=== PATIENT | female | born 1975 | race Caucasian/White ===

== ENCOUNTER 2023-09-04 12:19 | Emergency (ER) | payer SELFPAY ==
[2023-09-04 12:24] VITALS: BMI 32.3
--- NOTE | 2023-09-04 12:25 | ECG_ITS ---
Test Reason : CHEST PAIN Blood Pressure : / mmHG Vent. Rate : 088 BPM Atrial Rate : 088 BPM P-R Int : 170 ms QRS Dur : 088 ms QT Int : 376 ms P-R-T Axes : 044 055 005 degrees QTc Int : 454 ms Normal sinus rhythm Nonspecific T wave abnormality Abnormal ECG No previous ECGs available Referred By: Generic ED Physician Electronically Signed By:ERNESTO NICOLE MD
[2023-09-04 13:00] VITALS: BP 138/83; PULSE 94; RESP 16; TEMP 36.4; O2SAT 98; BMI 32.3
[2023-09-04 13:31] LABS: MANUAL DIFF FLAG NO
[2023-09-04 13:38] LABS: Basophils Percent Auto 0.6 % (0-2); Eosinophils Absolute Auto 0.1 X10*3/uL (0.0-0.4); Eosinophils Percent Auto 1.9 % (0-4); Hematocrit 39.8 % (37.0-47.0); Hemoglobin 13.5 g/dl (12.0-16.0); Imm Gran Abs Auto 0.01 X10*3/uL (0.00-0.03); Imm Gran Pct Auto 0.2 % (0.0-0.4); Lymphocytes Absolute Auto 2.2 X10*3/uL (1.2-4.9); Mean Corpuscular HGB Conc 33.9 g/dl (31.0-35.0); Mean Corpuscular Hemoglobin 30.3 pg (27.0-33.0); Mean Corpuscular Volume 89.4 fL (80.0-98.0); Mean Platelet Volume 8.9 fL (9.4-12.3); Monocytes Absolute Auto 0.5 X10*3/uL (0.1-1.2); Neutrophils Absolute Auto 3.5 x10*3/uL (2.0-8.3); Neutrophils Percent Auto 54.3 % (45-73); Platelet Count 245 X10*3/uL (160-400); Red Blood Count 4.45 X10*6/uL (4.20-5.50); White Blood Count 6.4 X10*3/uL (4.8-10.8)
[2023-09-04 13:50] LABS: Alanine Aminotransferase 34 U/L (0-31); Albumin Level 4.7 g/dL (3.5-5.0); Alkaline Phosphatase 85 U/L (39-117); Anion Gap 12 (12-20); Aspartate Amino Transferase 27 U/L (5-31); Bilirubin Direct 0.2 mg/dL (0.0-0.5); Bilirubin Total 0.6 mg/dL (0.0-1.0); Blood Urea Nitrogen 14 mg/dL (9-16); Calcium 9.9 mg/dL (8.4-10.2); Carbon Dioxide 28 mmol/L (22-29); Chloride 104 mmol/L (96-108); Creatinine Clr Calc Pharmacy 96.3; Estimated Glomerular Filt Rate > 60; Glucose Random 99 mg/dL (60-115); Potassium 4.3 mmol/L (3.3-5.1); Sodium 140 mmol/L (135-145); Total Protein 7.9 g/dL (6.5-8.0)
[2023-09-04 13:58] LABS: Troponin-I High Sensitivity < 2.7 ng/L (<3.5-17.0)
== END 2023-09-04 17:29 | disposition left against medical advice (07) ==
LOC: HO.ED 16:42
PROVIDERS: Emergency Provider Emergency Medicine
DX: R07.89 Other chest pain (principal); Z79.899 Other long term (current) drug therapy
CPT/HCPCS: 36415; 80048; 80076; 84484; 85025; 93005; 99283

== ENCOUNTER → 2023-09-04 12:25 | Outpatient (BNV) | payer SELFPAY | PROVIDERS: Emergency Provider Emergency Medicine; Visit Provider Internal Medicine Cardiovascular Disease | DX: R94.31 Abnormal electrocardiogram [ECG] [EKG] (principal) | CPT/HCPCS: 93010 ==

== ENCOUNTER 2024-06-03 22:50 | Emergency (ER) | payer MEDICARE, SELFPAY ==
[2024-06-03 23:16] VITALS: BP 140/92; PULSE 121; RESP 24; TEMP 36.8; O2SAT 100; BMI 39.4
[2024-06-03 23:41] LABS: MANUAL DIFF FLAG NO
[2024-06-03 23:43] LABS: Basophils Absolute Auto 0.1 X10*3/uL (0.0-0.2); Basophils Percent Auto 0.5 % (0-2); Eosinophils Absolute Auto 0.1 X10*3/uL (0.0-0.4); Eosinophils Percent Auto 1.2 % (0-4); Hematocrit 37.2 % (37.0-47.0); Hemoglobin 12.8 g/dl (12.0-16.0); Imm Gran Abs Auto 0.06 X10*3/uL (0.00-0.03); Imm Gran Pct Auto 0.5 % (0.0-0.4); Lymphocytes Percent Auto 24.7 % (20-40); Mean Corpuscular HGB Conc 34.4 g/dl (31.0-35.0); Mean Corpuscular Hemoglobin 30.4 pg (27.0-33.0); Mean Corpuscular Volume 88.4 fL (80.0-98.0); Mean Platelet Volume 8.8 fL (9.4-12.3); Monocytes Absolute Auto 0.9 X10*3/uL (0.1-1.2); Neutrophils Percent Auto 66.1 % (45-73); Platelet Count 284 X10*3/uL (160-400); Red Blood Count 4.21 X10*6/uL (4.20-5.50); Red Cell Distribution Width 12.2 % (11.0-16.0); White Blood Count 12.1 X10*3/uL (4.8-10.8)
[2024-06-03 23:45] LABS: Appearance Urine Turbid; Glucose Urine UA Negative (Negative); Leukocyte Esterase Urine Large (3+) (Negative); Nitrite Urine Positive (Negative); Specific Gravity - Urine <= 1.005 (1.005-1.025); UMIC TRIGGER UACC YES; Urine Blood Large (3+) (Negative); Urine Protein 300 (3+) mg/dL (Neg-Trace)
[2024-06-03 23:46] LABS: Color Urine Orange
[2024-06-03 23:53] LABS: Bacteria Urine None Seen (None Seen); Hyaline Casts Urine 0-2 /LPF (0-2); RBC Urine >20 /HPF (0-2); Squamous Epithelial Cell Urine 0-2 /HPF (0-2); UACC Culture Trigger YES; WBC Urine >50 /HPF (0-5)
[2024-06-03 23:59] LABS: Albumin Level 4.5 g/dL (3.5-5.0); Alkaline Phosphatase 100 U/L (39-117); Anion Gap 14 (12-20); Aspartate Amino Transferase 50 U/L (5-31); Bilirubin Total 0.3 mg/dL (0.0-1.0); Blood Urea Nitrogen 13 mg/dL (9-16); Calcium 9.7 mg/dL (8.4-10.2); Carbon Dioxide 25 mmol/L (22-29); Chloride 103 mmol/L (96-108); Creatinine Clr Calc Pharmacy 99.9; Estimated Glomerular Filt Rate > 60; Glucose Random 98 mg/dL (60-115); Potassium 4.1 mmol/L (3.3-5.1); Sodium 138 mmol/L (135-145); Total Protein 7.6 g/dL (6.5-8.0)
[2024-06-04 00:13] LABS: Alanine Aminotransferase 93 U/L (0-31)
--- NOTE | 2024-06-04 01:40 | PC.NURSE ---
pt arrived from the waiting room for uti
[2024-06-04 01:49] VITALS: BP 103/72; PULSE 93; RESP 18; TEMP 36.4; O2SAT 97
--- NOTE | 2024-06-04 01:58 | ED.FEMALEGU ---
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 She notes abrupt onset suprapubic pain, pressure, blood in urine and dysuria. She has no flank pain, fevers, n/v. She is asking for abx and to go home for treatment. MD elicited complaint: dysuria, UTI and other (hematuria) Pertinent past history: recurrent UTIs Onset (ago): hour(s) (few) Location of symptoms: suprapubic Severity: moderate Quality of pain: burning Consistency: intermittent Vaginal discharge: none Vaginal bleeding: none Urinary symptoms: Dysuria, Urgency, Frequency and Hematuria Exacerbating factors: urination Relieving factors: none Associated symptoms: denies other symptoms Treatment prior to arrival: OTC urinary analgesics Related Data Previous Rx's ?Medication ?Instructions ?Recorded cefuroxime axetil 250 mg tablet 250 mg PO BID 7 days #14 tabs 06/04/24 Allergies Allergy/AdvReac Type Severity Reaction Status Date / Time No Known Allergies Allergy Verified 06/03/24 23:16 Review of Systems Review of Systems: Constitutional : No Fever, No Chills ENT/Mouth : No sore throat Eyes: No Eye Pain, No Swelling, No Redness Cardiovascular : No Chest Pain, No SOB Respiratory : No Cough, No Sputum, No Wheezing Gastrointestinal : no Nausea, no Vomiting, No Diarrhea, positive abdominal pain Genitourinary : positive Dysuria, positive urinary frequency, positive Hematuria Musculoskeletal : No joint pain, No Myalgias Skin : No Skin Lesions, No rash Neuro : No Weakness, No Numbness, No Headache All other systems reviewed and are negative PMFSH Past Medical History Attestation statement: The following information was validated with the patient. Source: old records reviewed Medical History Overactive bladder UTI (urinary tract infection) Social History Social History Alcohol intake: never Smoked in Last 30 Days: No Use of substances other than those prescribed or required for medical reasons: No Do you have a plan to hurt others: No Plan Patient : No Physical Exam Vital Signs: Vital Signs: Last Vital Signs Temp 97.5 F 06/04/24 01:49 Pulse 93 06/04/24 01:49 Resp 18 06/04/24 01:49 BP 103/72 06/04/24 01:49 Pulse Ox 97 06/04/24 01:49 O2 Del Method Room Air 06/04/24 01:49 BMI result Body Mass Index 39.4 Appearance: Alert. Oriented X3. No acute distress. Eyes: Pupils equal, round and reactive to light. ENT: Pharynx normal. Neck: Normal inspection. Neck supple. CVS: Normal heart rate and rhythm. Pulses normal. Respiratory: No respiratory distress. Breath sounds normal. Abdomen: Soft and non-tender. no CVA ttp Skin: Skin warm and dry. Normal skin color. Extremities: No lower extremity edema. Neuro: Oriented X 3. No motor deficit. No sensory deficit. Medical Decision Making Medical Decision Making [facility] Narrative: 49 yo female with PMH of overactive bladder, UTI here with c/o dysuria, suprapubic pain and hematuria no vomiting, fevers, HR down without therapy, no flank pain and no hx of stones. At this time labs and UA ordered start on abx for UTI - not toxic, low susp for pyelo and renal colic Differential Diagnosis Differential Diagnoses: The differential diagnosis associated with the presentation includes UTI, cystitis Admission/Observation Consideration of admission/observation: Escalation of care including admission/observation considered labs and VS stable Lab Data [facility] Lab Attestation statement: I reviewed the patient's lab results. 06/03/24 23:33 06/03/24 23:33 Labs: Lab Results 06/03/24 Range/Units 23:33 WBC 12.1 H (4.8-10.8) X10*3/uL RBC 4.21 (4.20-5.50) X10*6/uL Hgb 12.8 (12.0-16.0) g/dl Hct 37.2 (37.0-47.0) % MCV 88.4 (80.0-98.0) fL MCH 30.4 (27.0-33.0) pg MCHC 34.4 (31.0-35.0) g/dl RDW 12.2 (11.0-16.0) % Plt Count 284 (160-400) X10*3/uL MPV 8.8 L (9.4-12.3) fL Immature Gran % (Auto) 0.5 H (0.0-0.4) % Neut % (Auto) 66.1 (45-73) % Lymph % (Auto) 24.7 (20-40) % [place] % (Auto) 7.0 (2-11) % Eos % (Auto) 1.2 (0-4) % Baso % (Auto) 0.5 (0-2) % Lymph # (Auto) 3.0 (1.2-4.9) X10*3/uL [place] # (Auto) 0.9 (0.1-1.2) X10*3/uL Eos # (Auto) 0.1 (0.0-0.4) X10*3/uL Baso # (Auto) 0.1 (0.0-0.2) X10*3/uL Abs Immat Gran (auto) 0.06 H (0.00-0.03) X10*3/uL Absolute Neuts (auto) 8.0 (2.0-8.3) x10*3/uL Absolute Nucleated RBC 0.000 (0.0-0.012) X10*3/uL Nucleated RBC % (auto) 0.0 (0.0-0.2) /100WBC Sodium 138 (135-145) mmol/L Potassium 4.1 (3.3-5.1) mmol/L Chloride 103 (96-108) mmol/L Carbon Dioxide 25 (22-29) mmol/L Anion Gap 14 (12-20) BUN 13 (9-16) mg/dL Creatinine 0.80 (0.5-1.4) mg/dL Estim Creat Clear Calc 99.9 Estimated GFR > 60 Random Glucose 98 (60-115) mg/dL Calcium 9.7 (8.4-10.2) mg/dL Total Bilirubin 0.3 (0.0-1.0) mg/dL AST 50 H (5-31) U/L ALT 93 H (0-31) U/L Alkaline Phosphatase 100 (39-117) U/L Total Protein 7.6 (6.5-8.0) g/dL Albumin 4.5 (3.5-5.0) g/dL Urine Color [place] A Urine Appearance Turbid Urine pH 5.0 (5.0-9.0) Ur Specific [place] <= 1.005 (1.005-1.025) Urine Protein 300 (3+) H (Neg-Trace) mg/dL Urine Glucose (UA) Negative (Negative) mg/dL Urine Ketones (Negative) mg/dL Urine Blood Large (3+) H (Negative) Urine Nitrite Positive H (Negative) Ur Leukocyte Esterase Large (3+) H (Negative) Urine RBC >20 H (0-2) /HPF Urine WBC >50 H (0-5) /HPF Ur Squamous Epith Cells 0-2 (0-2) /HPF Urine Bacteria None Seen (None Seen) Hyaline Casts 0-2 (0-2) /LPF External Record Review External record reviewed: Outpatient record Prescription Management I considered prescription management with: Antibiotic Discharge Plan Discharge Clinical Impression: Urinary tract infection, Cystitis Patient Disposition: Home, Self-Care Instructions: Urinary Tract Infection in Women (ED) Additional Instructions: return for fevers, vomiting, unable to eat or drink, back pain or any worsening symptoms start oral antibiotics tonight at dinner congratulations on your graduation On a cephalosporin?antibiotic, softer bowel movements are to be expected. Call your provider if you move your bowels more than 4 times a day, your bowel movements are almost all liquid, or you get a rash.?? Prescriptions: New cefuroxime axetil 250 mg tablet 250 mg PO BID 7 Days Qty: 14 0RF Print Language: Welsh
[2024-06-04] MEDS: Ketorolac Tromethamine 15 MG/ML VIAL IVPUSH (02:49)
[2024-06-04] MEDS: cefTRIAXone sodium 1 GM VIAL IVPUSH (02:49)
--- OUTSIDE RECORDS SUMMARY | 2024-06-04 03:22 | XMS_ITS | Continuity of Care Document ---
Author Organization [facility] Address [address] [place] [address] Phone Care Team Providers Care Roving Carrier Name Role Phone Fercho Noyola DO Unavailable Unavailable Allergies, Adverse Reactions, Alerts Substance Reaction Status Criticality latex Rash Active No Information Medications Medication Instructions Dosage Effective Dates (start - stop) Status Comments gabapentin 300 mg capsule take 1 capsule by oral route 3 times every day 300 MG - Active Lamictal 100 mg tablet take 1 tablet by oral route every day 100 MG - Active Minivelle 0.075 mg/24 hr transdermal patch apply 1 patch by transdermal route 2 times every week cyclically, 3 weeks on and 1 week off 1.00 patch - Active Adderall XR 25 mg capsule,extended release take 1 capsule by oral route 2 times every day in the morning upon awakening 25 MG - Active Minivelle 0.075 mg/24 hr transdermal patch apply 1 patch by transdermal route 2 times every week cyclically, 3 weeks on and 1 week off 1.00 patch - No Longer Active Bactrim DS 800 mg-160 mg tablet take 1 tablet by oral route every 12 hours for 3 days - No Longer Active Problems Condition Type Effective Dates (start - stop) Clini juan Status Comments No Known Problems Procedures Procedure Date Preven Meds E&m Estab Pt; 016 Cytopath Cerv/vag Thin Prep; R 16 Preven Meds E&m Estab Pt; 016 Offic/outpt E&m Estab Low-mod 5 Offic/outpt E&m Estab Low-mod 5 Offic/outpt E&m Estab Low-mod 5 Offic/outpt E&m Estab Low-mod 5 Ua Dip Stik/tablt;wo Micro Non 15 Offic/outpt E&m Estab Low-mod 5 Offic/outpt E&m Estab Low-mod 4 Offic/outpt E&m Estab Low-mod 4 Echo Transvaginal Init Preven Meds E&m New Pt; 18-39 Advance Directives Directive Yes / No Effective Date File Name No Information Encounters Encounter Description Practice Location Reason(s) For Visit Diagnoses Date Provider Providers Copied on Encounter Preven Meds E&m Estab Pt; 40-64 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 [address] [place] [address], [place], [place], [address] [place] [address] , [place]. tel:[phone] Offic/outpt E&m Estab Low-mod [facility], [address], [place], [place], [id number], tel:[phone] Kristina nnbrandy (old) consult estrogen (chief complaint) Menopausal and female climacteric states 5 Dennys Barrera. [address] [place] [address], [place] [address], [place], [place], [id number] , [place]. tel:[phone] [facility], [address], [place], [place], [id number], [place] tel:[phone] Kristina nna (old) No Information 5 Scott Baer. [address] [place] [address], [facility], . tel:[phone] Offic/outpt E&m Estab Low-mod [facility], [address], [place], [place], [id number], [place] tel:[phone] NEOB-Gaha nna (old) med check (chief complaint) Hormone replacement therapy 5 Dennys Barrera. [facility], [address], [address] [place] [address] , . tel:[phone] [facility], [address], [place], [place], [address] [place] [address], [place] tel:[phone] NEOB-Gaha nna (old) No Information 5 Dennys Barrera. [address] [place] [address], [place] [address], [place], [place], [address] [place] [address] , . tel:[phone] Offic/outpt E&m [facility], [address], [place], [place], [address] [place] [address], tel:[phone] NEOB-Gaha nna (old) talk about test that were done (chief complaint) wants RX for migrains (chief complaint) Family hx of breast cancerEndometrioma of ovary 5 Dennys Barrera. [address] [place] [address], [place] [address], [place], [place], [address] [place] [address] , . tel:[phone] Offic/outpt E&m [facility], [address], [place], [place], [address] [place] [address], [place] tel:[phone] NEOB-Gaha nna (old) F/U from ER (chief complaint) Pelvic pain 4 Dennys Barrera. [facility]5 [facility], [place] [address], [place], [place], [address] [place] [address] , [place]. tel:[phone] [facility]pt [facility], [address], [place], [place], [id number], [place] tel:[phone] NEOB-Gaha nna (old) results to [place] (chief complaint) Endometrioma of ovary 4 Dennys Barrera. [facility], [address] [facility], [place], [place], [id number] , . [phone] [facility], [address], [place], [place], [id number], [phone] NEOB-Gaha nna (old) No Information 4 Dennys DE ANDA Fercho. [facility]5 [facility], [place] [address], [place], [place], [id number] , . [phone] Init Preven Meds E&m New Pt; 18-39 [facility], [address], [place], [place], [id number], [phone] NEOB-Gaha nna (old) annual exam (chief complaint) right breast pain (chief complaint) possible cyst (chief complaint) ROUTINE NAIL PROFESSIONAL EXAMINATIONFamily hx of breast cancerBreast pain 4 Noyola DO Brantley. [address] [place] [address], [place] [address], [place], [place], [id number] , . [phone] Family History Family Member Type Diagnosis Age At Onset Problem (finding) Family history of malignant neoplasm of breast in first degree relative Payers Payer name Insurance type Covered green party ID Authoriza tion(s) No Information Social History Type Description Quantity Date Captured Comments Alcohol Use Details Unknown Caffeine Use Details Unknown Tobacco Use Status Never smoked tobacco 2015 Smoking Status Never smoker Sex Female Vital Signs Date / Time: Height Weight BMI Pulse Rate Blood Pressure Temperature Respiratory Rate Body Surface Area Head Circumference Head Circ. Percentile Wt./John. Percentile BMI percentile Pulse Ox Inhaled Ox 1:17 PM 63.50 in 78.018 kg (172.00 lbs) 29.9 9 kg/m eter (2) 115 /min 140/95 mm[Hg] Chief Complaint And Reason For Visit From encounter dated '09/02/2015 13:00'. annual exam (chief complaint). Description: Currently : no. Patient is not contemplating . The patient states she uses hysterectomy for control. Her menses is absent. Negative for dysmenorrhea and menorrhagia. Negative for: breast discharge, breast lump(s) and breast pain. Positive for: breast self exam.Postmenopausal: Age: 39. Positive for Hormone replacement therapy (Type: estrogen, Number of years: 1). Menopausal symptoms negative for: hot flashes, insomnia and night sweats. Additional information: annual exam. doing well. Has gotten to her partner, moved back to [place]. s/p hysterectomy. BRCA +. waiting to have mastectomy performed. ovaries removed with hyst. no bleeding. using vivelle dot. Reason For Referral Reason For Referral No Information History Of Present Illness Encounter Date Complaint History Of Prese nt Illness annual exam Currently pregna nt: no. Patient is not contemplating . The patient states she uses hysterectomy for control. Her menses is absent. Negative for dysmenorrhea and menorrhagia. Negative for: breast discharge, breast lump(s) and breast pain. Positive for: breast self exam.Postmenopausal: Age: 39. Positive for Hormone replacement therapy (Type: estrogen, Number of years: 1). Menopausal symptoms negative for: hot flashes, insomnia and night sweats. Additional information: annual exam. doing well. Has gotten to her partner, moved back to [place]. s/p hysterectomy. BRCA +. waiting to have mastectomy performed. ovaries removed with hyst. no bleeding. using vivelle dot. consult estrogen Patient present s today to discuss estrogen replacement. Patient has moved to [place] and has not found a new doctor as recommended. Patient has been using the minivelle 0.075 but states that she continues to have hot flashes. Patient is a BRCA carrier and has yet to see a breast surgeon as recommended. Patient also is a smoker and now 40yo. med check Patient returns today after hysterectomy, resulting in surgical menopause with Dr. Ashford. Benign pathology. Patient referred back to me for hormone replacement therapy. Patient was given samples of minivelle dot at 0.05 but continues to have some hot flashes, wants to go up on the dose. Surgically patient is doing very well. talk about test that were done P atient returns today to discuss recent genetic testing. Patient is +for BRCA. Patient is scheduled to meet again with Dr. Vaccarello for ovarian cyst and elevated CA-125 of 500+. Patient without pain today. Patient is anxious and concerned about cancer. wants RX for migrains F/U from ER Patient returns today after recent admission to [facility] after visit to ED for pelvic pain. Patient admits that on Saturday evening pain was intense and required IV pain medication. Patient however left the next day AMA prior to being seen by me. Patient admits that pain has improved. Patient now describes abdomen with a mild tenderness. Denies N/V or fevers. Patient is voiding with regular bowel movements. results to US Patient returns today to discuss recent TVUS. Patient with hx of LSO. Right ovary demonstrates a likely endometrioma measuring 6d2x8mm. Classic ground glass appearance. No free fluid. Patient also has not had mammo performed yet. Patient with strong fam hx of breast cancer in mother, grandmother and cousin. The sister of the cousin is +BRCA. unknown on mother and grandmother as . right breast pain possible cyst annual exam Currently pregna nt: no. Patient is not contemplating . The patient states she uses none for control. Last LMP was 04/17/2014. Her menses is regular with normal flow with a frequency of every 28 days. Negative for dysmenorrhea and menorrhagia. The patient does use tobacco. Additional information: New patient, moved from [place]. G0 with regular cycle, admits to being fuentes, no contraception needed. Patient with hx of ovarian cyst, RSO performed. Patient with mild tenderness on Left side. Patient also with strong fam hx of breast cancer. +breast pain. 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 Rela trinidad to Family hx of breast cancer Perform monthly breast self exam s. Related to Family hx of breast cancer Return in 4-6 weeks for repeat TVUS and BRCA info Related to Pelvic pain Discussed diet and exercise Rela trinidad to Pelvic pain have BRCA testing done Related t o Endometrioma of ovary Call if heavy bleedi ng 1 or more pads per hour Related to Endometrioma of ovary Perform self breast exam Related to ROUTINE NAIL PROFESSIONAL EXAMINATION Discussed Diet and exercise Rela trinidad to ROUTINE NAIL PROFESSIONAL EXAMINATION Assessments Type Assessment Date assessment Encntr for middle school librarian exam (general) (r outine) w/o abn findings impression Annual exam performe d with Pelvic exam and breast examEncouraged self breast exam, up to date on mammo. +BRCAWaiting to get money to have mastectomyS/p Hystecetomy BSO with Vacc, doing wellRefills given on VIVELLE DOTDiscussed diet and exerciseReturn for annual in a year Mental Status Date Cognitive Assessment Orientation - [place] ed to time, place, person, situation. Patient Care Teams Name Effective Dates (start - stop) Status Members No Information
[2024-06-04 03:42] VITALS: BP 108/63; PULSE 65; RESP 16; TEMP 36.6; O2SAT 98
[2024-06-04 03:47] VITALS: BP 108/63; PULSE 65; RESP 16; TEMP 36.6; O2SAT 98
== END 2024-06-04 03:59 | disposition home or self-care (01) ==
PROVIDERS: Emergency Provider Emergency Medicine
DX: N30.90 Cystitis, unspecified without hematuria (principal)
CPT/HCPCS: 36415; 80053; 81001; 85025; 87086; 96374; 96375; 99284; J0696; J1885